=== PATIENT | female | born 1970 | race Caucasian/White ===

== ENCOUNTER → 2019-12-21 | Outpatient (CLI) | payer BC ==
[~2019-12-21] MED LIST: CATHETER FLUSH 10 ML SYR IV PRN; HOLD METFORMIN - RECEIVED CONTRAST 20 ML VIAL IV SCH; IOHEXOL 350 MG/ML 100 ML (OMNIPAQUE 350) VIAL IV ONE; NS 100 ML (IVPB) BAG IV ONE
[2019-12-21 15:39] LABS: CREATININE SERUM 0.98 MG/DL (0.60-1.30)
--- NOTE | 2019-12-21 16:48 | Diagnostic Imaging Report ---
CLINICAL INDICATION: Patient is having trouble swallowing when she eats. Check thyroid. EXAM: Axial CT scan of the neck performed without and with 80 mL of Omnipaque 350 IV contrast. Coronal and sagittal reformatted images were created. All CT scans use one or more of the following dose optimizing techniques: Automated exposure control, MA and/or KvP adjustment based on a patient size and exam type, or iterative reconstruction. COMPARISON: None. FINDINGS: There is no neck soft tissue mass, fat stranding, fluid collection seen. The nasopharynx, oropharynx, hypopharynx, and laryngeal soft tissue structures are unremarkable and relatively symmetric. There is a 2 mm punctate calcification within the posterior superficial portion of the left parotid gland. Otherwise, salivary glands are unremarkable. Thyroid gland is unremarkable. There is no significant lymphadenopathy. The visualized portions of the oral cavity, tongue, sublingual and submandibular regions are unremarkable. The orbits and globes are unremarkable. The visualized intracranial structures show no significant abnormality. There is cervical spine degenerative disease, most pronounced at the C5-C6 level with moderate loss of intervertebral disc height and hypertrophic spurs. IMPRESSION: 1: There is a 2 mm nonobstructive stone within the superficial portion of the left parotid gland. 2: Otherwise, unremarkable CT scan of the neck soft tissue. 3: Thyroid gland shows no significant abnormality on CT scan. There is no evidence of significantly enlarged thyroid gland. Of note, CT scan may miss small and isodense thyroid nodules. If there is concern for more detailed abnormalities of the thyroid gland, ultrasound would better evaluate. Dictated by: Dictated on workstation # [id number]
== END ==
LOC: RAD FS 14:49
PROVIDERS: ATTEND Nurse Practitioner Family
DX: K11.5 Sialolithiasis (principal); E01.0 Iodine-deficiency related diffuse (endemic) goiter
CPT/HCPCS: 36415; 70492; 82565; 84520

== ENCOUNTER → 2023-10-21 | Outpatient (CLI) | payer BC ==
[~2023-10-21] MED LIST changes: -CATHETER FLUSH 10 ML SYR IV PRN; +CATHETER FLUSH 10 ML SYR IVP PRN; +FUROSEMIDE INJECTION 40 MG/4 ML VIAL IVP ONE; +FUROSEMIDE INJECTION 40 MG/4 ML VIAL ONE; -HOLD METFORMIN - RECEIVED CONTRAST 20 ML VIAL IV SCH; -IOHEXOL 350 MG/ML 100 ML (OMNIPAQUE 350) VIAL IV ONE; -NS 100 ML (IVPB) BAG IV ONE
--- NOTE | 2023-10-21 14:47 | Diagnostic Imaging Report ---
Exam: Nuclear medicine MAG3 renal study. Date: October 21, 2023 Indication: 53-year-old female, right-sided abdominal pain and hydronephrosis. Comparison: CT September 26, 2023. Findings: 5.06 mCi of technetium labeled MAG3 was administered. 40 mg of intravenous Lasix was also administered during the course of exam. There is prompt and symmetric appearing renal perfusion. There is 44% uptake by the left kidney and 56% uptake by the right kidney. There is radiotracer excretion by both kidneys and no delay in radiotracer excretion. The half-life for clearance are measured at 4.5 minutes on the left and 5.5 minutes on the right. Impression: 1. Symmetric and prompt renal perfusion with renal uptake values as above. 2. No evidence of a fixed mechanical urinary tract obstruction. Dictated by: Dictated on workstation # [id number]
== END ==
LOC: CARD 10:12
PROVIDERS: ATTEND Specialist
DX: N13.30 Unspecified hydronephrosis (principal)
CPT/HCPCS: 78708; A9562